=== PATIENT | male | born 1945 | race Caucasian/White ===

== ENCOUNTER → 2018-02-15 | Outpatient (CLI) | payer OTHER ==
[~2018-02-15] MED LIST: CHILDREN'S ASPI81 M1 PO; FLOMAX0.4 MG PO; TRAZODONE HCL50 MG PO; UNICOMPLEX M TA1 TA1 PO; VITAMIN D1000 UNI1 PO
--- NOTE | ~2018-02-15 | EKG ---
[place] [address] [facility] [place] [address] ELECTROCARDIOGRAM REPORT Name: DREA KHAN Room #: [facility] [id number] Admission: 02/15/18 Attend Phys: Rio Mendoza MD Discharge: Date of : 49 Report #: [id number] THIS REPORT FOR: //name// [facility] Test Date: 2018-02-15 Test Time: 13:46:27 Pat Name: DREA KHAN Department: Room: Gender: M Management Development Specialist: TRACEY : 1945 Requested By: Rio Mendoza Order Number: [id number] MD: Adebayo Tomlin Measurements Intervals [place] Rate: 64 P: 22 ME: 167 QRS: -3 QRSD: 85 T: 31 QT: 411 QTc: 424 Interpretive Statements Sinus rhythm No significant abnormality No previous ECG available for comparison Electronically Signed On 02-15-2018 16:55:00 CDT by Adebayo Tomlin [email or web address] <ELECTRONICALLY SIGNED> By: Adebayo Tomlin MD, [facility] 02/15/18 1655 [id number] Adebayo Tomlin MD, FACC /EPI
== END | disposition home or self-care (01) ==
LOC: LITH 13:29
DX: N20.0 Calculus of kidney (principal); Z98.0 Intestinal bypass and anastomosis status; Z98.890 Other specified postprocedural states